=== PATIENT | male | born 1985 | race Caucasian/White ===

== ENCOUNTER 2024-12-02 11:30 | Emergency (ER) | payer OTHER, SELFPAY ==
[2024-12-02 11:34] VITALS: BP 142/88; PULSE 88; RESP 16; TEMP 36.8; O2SAT 100; BMI 26.4
== END 2024-12-02 14:30 | disposition left against medical advice (07) ==
PROVIDERS: Emergency Provider Emergency Medicine; PCP Physician Assistant
CPT/HCPCS: 99281